=== PATIENT | female | born 1995 | race African-American/Black ===

== ENCOUNTER 2017-02-10 18:03 | Inpatient (IN) | payer OTHER ==
[~2017-02-10] VITALS: Ht 160 cm; Wt 68.5 kg
[~2017-02-10 18:03] MED LIST: BACTRIM,SEPT1 TABLET PO; CIPROFLOXACIN500 M1 PO; CONCERTA54 MG PO; KETOCONAZOLE60 GM; METHYLPHENIDATE 27 MG; PYRIDIUM200 MG PO; TRI-SPRINTEC1 EACH; TRI-SPRINTEC1 EACH PO; ZOFRAN4 MG PO
[2017-02-10 18:32] VITALS: BP 121/74
[2017-02-10 18:49] LABS: EOSINOPHIL (%) 0.9 % (0-5); EOSINOPHIL COUNT 0.1 K/uL (0-0.3); HEMATOCRIT 29.7 % (36.0-46.0); IMMATURE GRANULOCYTE (%) 0.7 % (0.0-0.7); IMMATURE GRANULOCYTE COUNT 0.1 K/uL; INSTRUMENT ABS NEUTROPHIL CT 9.4 K/uL; LYMPHOCYTE COUNT 2.4 K/uL (1.0-2.8); MCH 27.7 PG (29.0-34.0); MCHC 34.7 G/DL (30.0-36.0); MCV 79.8 FL (83-99); MEAN PLAT.VOLUME 8.6 uM^3 (9.5-12.4); MONOCYTE COUNT 0.8 K/uL (0-0.8); NEUTROPHIL (%) 73.2 % (45-76); NEUTROPHIL COUNT 9.4 K/uL (1.8-6.4); PLATELET COUNT 332 K/uL (156-360); RBC DIS.WIDTH-SD 37.2 % (39-53); RED BLOOD COUNT 3.72 M/uL (3.80-5.20); WHITE BLOOD COUNT 12.8 K/uL (4.1-10.2)
[2017-02-10 19:03] VITALS: BP 119/64
[2017-02-10] MEDS ORDERED: PRENATAL TABLE1 EAC3 PO (19:41)
[2017-02-10 20:34] VITALS: BP 120/58
[2017-02-10 21:32] VITALS: BP 119/63
[2017-02-10 22:31] VITALS: BP 112/60
[2017-02-10 23:31] VITALS: BP 106/55
[2017-02-11] VITALS (27 sets, daily range): BP systolic 96–154; BP diastolic 52–93
[2017-02-11] MEDS ORDERED: PRENATAL TABLE1 EACH PO (04:41)
[2017-02-11] MEDS ORDERED: VALTREX50 MG/ML PO (04:46)
[2017-02-12] VITALS (9 sets, daily range): BP systolic 108–126; BP diastolic 52–69
[2017-02-12] MEDS ORDERED: MOTRIN800 MG PO (00:23)
[2017-02-13 07:33] VITALS: BP 102/56
[2017-02-13 17:12] VITALS: BP 112/73
== END 2017-02-13 18:26 | disposition home or self-care (01) | DRG 775 ==
LOC: LDRP-OP 18:03 → 2WEST 18:04 → LDRP-OP 04-03 10:13
PROVIDERS: Nurse Practitioner
DX: O36.5930 Maternal care for other known or suspected poor fetal growth, third trimester, not applicable or unspecified (principal); O99.02 Anemia complicating childbirth; D57.40 Sickle-cell thalassemia without crisis; Z3A.38 38 weeks gestation of pregnancy; Z37.0 Single live birth
CPT/HCPCS: 85025; C1755; G0378; J0595; J2210; J7120